=== PATIENT | female | born 1960 | race Caucasian/White ===

== ENCOUNTER 2018-07-03 20:21 | Outpatient (REF) | payer MEDICAID, SELFPAY ==
[2018-07-03 21:22] LABS: ALT 21 U/L (12-78); AST 14 U/L (15-37); Alkaline Phosphatase 137 U/L (46-116); Anion Gap 9.1 mmol/L (3-11); BUN 13 mg/dL (7-18); Bilirubin, Total 0.4 mg/dL (0.2-1.0); CO2 26.9 mmol/L (21.0-32.0); Calcium 9.4 mg/dL (8.5-10.1); Chloride 103 mmol/L (98-107); Estimated GFR 56.75 (mL/min/1.73m2); Glucose 164 mg/dL (70-100); Potassium 3.8 mmol/L (3.5-5.1); Sodium 139 mmol/L (136-145); TSH 5.16 uIU/mL (0.358-3.74); Total Protein 7.2 g/dL (6.4-8.2)
== END 2018-07-03 20:41 ==
LOC: NCHCN 20:21
PROVIDERS: PCP Physician Assistant Medical; Visit Provider Physician Assistant Medical
DX: I10 Essential (primary) hypertension (principal); E04.9 Nontoxic goiter, unspecified
CPT/HCPCS: 80053; 84443

== ENCOUNTER 2018-08-19 14:00 | Outpatient (REF) | payer MEDICAID, SELFPAY ==
[2018-08-19 19:36] LABS: Hemoglobin A1C 5.8 % (4.5-6.2)
[2018-08-19 19:37] LABS: Calculated LDL 188; Cholesterol 269 mg/dL (50-200); HDL Cholesterol 42 mg/dL (40-60); Triglyceride 199 mg/dL (30-150)
== END 2018-08-19 14:20 ==
LOC: NCHCN 14:00
PROVIDERS: PCP Physician Assistant Medical; Visit Provider Nurse Practitioner Family
DX: E78.5 Hyperlipidemia, unspecified (principal); R73.03 Prediabetes
CPT/HCPCS: 80061; 83721; 83036

== ENCOUNTER 2019-02-18 15:47 | Outpatient (REF) | payer MEDICAID, SELFPAY ==
[2019-02-18 19:57] LABS: TSH (W/Ref FT4) 4.38 uIU/mL (0.36-3.74)
[2019-02-18 20:13] LABS: FREE T4 0.81 ng/dL (0.76-1.46)
== END 2019-02-18 16:07 ==
LOC: NCHCN 15:47
PROVIDERS: PCP Physician Assistant Medical; Visit Provider Nurse Practitioner Family
DX: E05.80 Other thyrotoxicosis without thyrotoxic crisis or storm (principal)
CPT/HCPCS: 84439; 84443

== ENCOUNTER 2019-08-21 13:48 | Outpatient (REF) | payer MEDICAID, SELFPAY ==
[2019-08-21 20:36] LABS: ALT 22 U/L (14-59); AST 16 U/L (15-37); Anion Gap 7.3 mmol/L (3-11); BUN 14 mg/dL (7-18); CO2 30.7 mmol/L (21.0-32.0); CREATININE 1.15 mg/dL (0.55-1.02); Calcium 9.9 mg/dL (8.5-10.1); Calculated LDL 176 mg/dL (<100); Chloride 103 mmol/L (98-107); Cholesterol 274 mg/dL (<200); Estimated GFR 48.13 (mL/min/1.73m2); Glucose 87 mg/dL (74-106); HDL Cholesterol 47 mg/dL (40-60); Potassium 4.1 mmol/L (3.5-5.1); Sodium 141 mmol/L (136-145); TSH 2.15 uIU/mL (0.36-3.74); Triglyceride 258 mg/dL (<150)
== END 2019-08-21 14:08 ==
LOC: NCHCN 13:48
PROVIDERS: PCP Physician Assistant Medical; Visit Provider Nurse Practitioner Family
DX: I10 Essential (primary) hypertension (principal); E78.5 Hyperlipidemia, unspecified; E05.80 Other thyrotoxicosis without thyrotoxic crisis or storm
CPT/HCPCS: 80048; 80061; 84443; 84450; 84460

== ENCOUNTER 2020-02-17 19:59 | Outpatient (REF) | payer MEDICAID, SELFPAY ==
[2020-02-17 19:56] LABS: ALT 27 U/L (14-59); AST 24 U/L (15-37); Albumin 4.4 g/dL (3.4-5.0); Alkaline Phosphatase 131 U/L (46-116); Anion Gap 9.4 mmol/L (3-11); BUN 10 mg/dL (7-18); Bilirubin, Total 0.5 mg/dL (0.2-1.0); CO2 28.6 mmol/L (21.0-32.0); CREATININE 0.95 mg/dL (0.55-1.02); Calcium 9.8 mg/dL (8.5-10.1); Calculated LDL 89 mg/dL (<100); Chloride 101 mmol/L (98-107); Cholesterol 187 mg/dL (<200); Glucose 95 mg/dL (74-106); HDL Cholesterol 69 mg/dL (40-60); Potassium 4.5 mmol/L (3.5-5.1); Sodium 139 mmol/L (136-145); TSH 6.91 uIU/mL (0.36-3.74); Total Protein 7.9 g/dL (6.4-8.2); Triglyceride 147 mg/dL (<150)
== END 2020-02-17 20:19 ==
LOC: NCHCN 19:59
PROVIDERS: PCP Physician Assistant Medical; Visit Provider Nurse Practitioner Family
DX: E78.5 Hyperlipidemia, unspecified (principal); I10 Essential (primary) hypertension; E05.80 Other thyrotoxicosis without thyrotoxic crisis or storm
CPT/HCPCS: 80053; 80061; 84443

== ENCOUNTER 2020-08-24 11:45 | Outpatient (REF) | payer MEDICAID, SELFPAY ==
[2020-08-24 18:52] LABS: Hemoglobin A1C 5.8 % (<5.7)
[2020-08-24 19:04] LABS: Calculated LDL 111 mg/dL (<100); Cholesterol 194 mg/dL (<200); HDL Cholesterol 51 mg/dL (40-60); TSH 9.78 uIU/mL (0.36-3.74); Triglyceride 163 mg/dL (<150)
== END 2020-08-24 11:46 | disposition home or self-care (01) ==
LOC: NCHCN 11:45
PROVIDERS: PCP Physician Assistant Medical; Visit Provider Nurse Practitioner Family
DX: E78.5 Hyperlipidemia, unspecified (principal); R73.03 Prediabetes; E05.80 Other thyrotoxicosis without thyrotoxic crisis or storm
CPT/HCPCS: 80061; 83036; 84443

== ENCOUNTER 2020-09-01 16:12 | Outpatient (REF) | payer MEDICAID, SELFPAY ==
[2020-09-01 20:44] LABS: FREE T4 0.81 ng/dL (0.76-1.46)
[2020-09-02 16:42] LABS: T3,Free 2.6 pg/mL (2.8-5.3)
== END 2020-09-01 16:13 | disposition home or self-care (01) ==
LOC: NCHCN 16:12
PROVIDERS: PCP Physician Assistant Medical; Visit Provider Nurse Practitioner Family
DX: E05.80 Other thyrotoxicosis without thyrotoxic crisis or storm (principal)
CPT/HCPCS: 84439; 84481

== ENCOUNTER 2021-03-08 15:16 | Outpatient (REF) | payer MEDICAID, SELFPAY ==
[2021-03-08 20:50] LABS: Anion Gap 8.8 mmol/L (3-11); BUN 10 mg/dL (7-18); CO2 29.2 mmol/L (21.0-32.0); CREATININE 0.9 mg/dL (0.55-1.02); Calcium 9.6 mg/dL (8.5-10.1); Chloride 102 mmol/L (98-107); Glucose 99 mg/dL (74-106); Potassium 3.9 mmol/L (3.5-5.1); Sodium 140 mmol/L (136-145); TSH (W/Ref FT4) 5.65 uIU/mL (0.36-3.74)
[2021-03-08 21:13] LABS: FREE T4 0.76 ng/dL (0.76-1.46)
== END 2021-03-08 15:17 | disposition home or self-care (01) ==
LOC: NCHCN 15:16
PROVIDERS: PCP Physician Assistant Medical; Visit Provider Physician Assistant
DX: R73.03 Prediabetes (principal); I10 Essential (primary) hypertension; E05.80 Other thyrotoxicosis without thyrotoxic crisis or storm
CPT/HCPCS: 80048; 84439; 84443

== ENCOUNTER 2022-03-29 21:13 | Outpatient (REF) | payer MEDICAID, SELFPAY ==
[2022-03-29 22:10] LABS: ALT 27 U/L (14-59); AST 25 U/L (15-37); Albumin 4.1 g/dL (3.4-5.0); Alkaline Phosphatase 143 U/L (46-116); BUN 10 mg/dL (7-18); Bilirubin, Total 0.5 mg/dL (0.2-1.0); CREATININE 0.9 mg/dL (0.55-1.02); Calcium 10.1 mg/dL (8.5-10.1); Chloride 105 mmol/L (98-107); Estimated GFR 71.83 (mL/min/1.73m2); Glucose 96 mg/dL (74-106); Sodium 139 mmol/L (136-145)
[2022-03-29 22:15] LABS: TSH (W/Ref FT4) < 0.01 uIU/mL (0.36-3.74)
[2022-03-29 22:33] LABS: FREE T4 1.45 ng/dL (0.76-1.46)
== END 2022-03-29 21:14 | disposition home or self-care (01) ==
LOC: NCHCN 21:13
PROVIDERS: PCP Physician Assistant Medical; Visit Provider Physician Assistant
DX: I10 Essential (primary) hypertension (principal); E05.80 Other thyrotoxicosis without thyrotoxic crisis or storm
CPT/HCPCS: 80053; 84439; 84443

== ENCOUNTER 2022-05-11 16:33 | Outpatient (REF) | payer MEDICAID, SELFPAY ==
[2022-05-11 19:18] LABS: TSH 0.71 uIU/mL (0.36-3.74)
== END 2022-05-11 16:34 | disposition home or self-care (01) ==
LOC: NCHCN 16:33
PROVIDERS: PCP Physician Assistant Medical; Visit Provider Physician Assistant
DX: E05.80 Other thyrotoxicosis without thyrotoxic crisis or storm (principal)
CPT/HCPCS: 84443

== ENCOUNTER 2023-03-27 14:09 | Outpatient (REF) | payer MEDICAID, SELFPAY ==
[2023-03-27 19:54] LABS: ALT 22 U/L (14-59); AST 23 U/L (15-37); Albumin 4.3 g/dL (3.4-5.0); Alkaline Phosphatase 118 U/L (46-116); Anion Gap 6.6 mmol/L (3-11); BUN 12 mg/dL (7-18); Bilirubin, Total 0.6 mg/dL (0.2-1.0); CO2 27.4 mmol/L (21.0-32.0); CREATININE 1.1 mg/dL (0.55-1.02); Calcium 10.1 mg/dL (8.5-10.1); Chloride 102 mmol/L (98-107); Estimated GFR 56.11 (mL/min/1.73m2); Glucose 98 mg/dL (74-106); LDL CHOLESTEROL 138 mg/dL (<100); Potassium 4.1 mmol/L (3.5-5.1); Sodium 136 mmol/L (136-145); TSH (W/Ref FT4) 33.27 uIU/mL (0.36-3.74); Total Protein 8.1 g/dL (6.4-8.2)
[2023-03-27 20:15] LABS: FREE T4 0.35 ng/dL (0.76-1.46)
[2023-03-27 20:18] LABS: Hemoglobin A1C 5.8 % (<5.7)
== END 2023-03-27 14:10 | disposition home or self-care (01) ==
LOC: NCHCN 14:09
PROVIDERS: PCP Physician Assistant Medical; Visit Provider Physician Assistant
DX: E05.90 Thyrotoxicosis, unspecified without thyrotoxic crisis or storm (principal); E78.5 Hyperlipidemia, unspecified; R73.03 Prediabetes
CPT/HCPCS: 80053; 83721; 83036; 84439; 84443

== ENCOUNTER 2023-05-16 22:13 | Outpatient (REF) | payer MEDICAID, SELFPAY ==
[2023-05-16 20:28] LABS: TSH (W/Ref FT4) 8.37 uIU/mL (0.36-3.74)
[2023-05-16 21:02] LABS: FREE T4 0.77 ng/dL (0.76-1.46)
== END 2023-05-16 22:14 | disposition home or self-care (01) ==
LOC: NCHCN 22:13
PROVIDERS: PCP Physician Assistant Medical; Visit Provider Physician Assistant
DX: E04.9 Nontoxic goiter, unspecified (principal)
CPT/HCPCS: 84439; 84443

== ENCOUNTER 2023-07-02 14:52 | Outpatient (REF) | payer MEDICAID, SELFPAY ==
[2023-07-02 19:08] LABS: TSH (W/Ref FT4) 0.02 uIU/mL (0.36-3.74)
[2023-07-02 19:34] LABS: FREE T4 1.85 ng/dL (0.76-1.46)
== END 2023-07-02 14:53 | disposition home or self-care (01) ==
LOC: NCHCN 14:52
PROVIDERS: PCP Physician Assistant Medical; Visit Provider Physician Assistant
DX: E04.9 Nontoxic goiter, unspecified (principal)
CPT/HCPCS: 84439; 84443

== ENCOUNTER 2023-09-27 14:21 | Outpatient (REF) | payer MEDICARE, MEDICAID, SELFPAY ==
[2023-09-27 19:48] LABS: FREE T4 0.78 ng/dL (0.76-1.46); TSH 3.67 uIU/Ml (0.36-3.74)
[2023-09-28 21:26] LABS: Hepatitis C Ab w Rflx HCV PCR Negative (Negative)
[2023-09-28 21:31] LABS: HIV-1/2 Ag & Ab Screen Negative (Negative)
== END 2023-09-27 14:22 | disposition home or self-care (01) ==
LOC: NCHCN 14:21
PROVIDERS: PCP Physician Assistant Medical; Visit Provider Physician Assistant
DX: E05.90 Thyrotoxicosis, unspecified without thyrotoxic crisis or storm (principal); Z11.4 Encounter for screening for human immunodeficiency virus [HIV]; Z11.59 Encounter for screening for other viral diseases
CPT/HCPCS: 86803; 87389; 84439; 84443

== ENCOUNTER 2024-04-02 11:17 | Outpatient (REF) | payer MEDICARE, MEDICAID, SELFPAY ==
[2024-04-02 20:37] LABS: ALT 22 U/L (14-59); AST 25 U/L (15-37); Albumin 4.2 g/dL (3.4-5.0); Alkaline Phosphatase 148 U/L (46-116); Anion Gap 6.6 mmol/L (3-11); BUN 12 mg/dL (7-18); Bilirubin, Total 0.35 mg/dL (0.2-1.0); CO2 30.4 mmol/L (21.0-32.0); Calcium 10.4 mg/dL (8.5-10.1); Calculated LDL 103 mg/dL (<100); Chloride 106 mmol/L (98-107); Cholesterol 208 mg/dL (<200); Estimated GFR 62.52 (mL/min/1.73m2); Glucose 106 mg/dL (74-106); HDL Cholesterol 66 mg/dL (40-60); Potassium 4.4 mmol/L (3.5-5.1); Sodium 143 mmol/L (136-145); TSH (W/Ref FT4) 5.33 uIU/mL (0.36-3.74); Total Protein 8.2 g/dL (6.4-8.2); Triglyceride 196 mg/dL (<150)
[2024-04-02 20:54] LABS: FREE T4 0.74 ng/dL (0.76-1.46)
== END 2024-04-02 11:18 | disposition home or self-care (01) ==
LOC: NCHCN 11:17
PROVIDERS: PCP Physician Assistant Medical; Visit Provider Physician Assistant
DX: E78.5 Hyperlipidemia, unspecified (principal); E05.90 Thyrotoxicosis, unspecified without thyrotoxic crisis or storm
CPT/HCPCS: 80053; 80061; 84439; 84443

== ENCOUNTER 2024-05-15 16:56 | Outpatient (REF) | payer MEDICARE, MEDICAID, SELFPAY ==
[2024-05-15 20:19] LABS: TSH < 0.01 uIU/mL (0.36-3.74)
[2024-05-16 17:51] LABS: T4, Free 2.6 ng/dL (0.8-2.2)
== END 2024-05-15 16:57 | disposition home or self-care (01) ==
LOC: NCHCN 16:56
PROVIDERS: PCP Physician Assistant Medical; Visit Provider Physician Assistant
DX: E05.90 Thyrotoxicosis, unspecified without thyrotoxic crisis or storm (principal)
CPT/HCPCS: 84439; 84443

== ENCOUNTER 2024-07-14 15:00 | Outpatient (REF) | payer MEDICARE, MEDICAID, SELFPAY ==
[2024-07-14 19:54] LABS: TSH < 0.01 uIU/mL (0.36-3.74)
== END 2024-07-14 15:01 | disposition home or self-care (01) ==
LOC: NCHCN 15:00
PROVIDERS: PCP Physician Assistant Medical; Visit Provider Physician Assistant
DX: E05.90 Thyrotoxicosis, unspecified without thyrotoxic crisis or storm (principal)
CPT/HCPCS: 84439; 84443

== ENCOUNTER 2024-10-01 19:02 | Outpatient (REF) | payer MEDICARE, MEDICAID, SELFPAY ==
[2024-10-01 21:43] LABS: Hemoglobin A1C 6.4 % (<5.7)
[2024-10-01 21:56] LABS: TSH 3.80 uIU/mL (0.36-3.74)
== END 2024-10-01 19:03 | disposition home or self-care (01) ==
LOC: NCHCN 19:02
PROVIDERS: PCP Physician Assistant Medical; Visit Provider Physician Assistant
DX: R73.03 Prediabetes (principal); E05.90 Thyrotoxicosis, unspecified without thyrotoxic crisis or storm
CPT/HCPCS: 83036; 84439; 84443

== ENCOUNTER 2025-03-04 15:02 | Outpatient (REF) | payer MEDICARE, MEDICAID, SELFPAY ==
[2025-03-04 18:28] LABS: TSH (W/Ref FT4) 5.73 uIU/mL (0.55-4.78)
[2025-03-04 18:34] LABS: ALT 20 U/L (10-49); AST 25 U/L (<34); Albumin 4.8 g/dL (3.2-5.0); Alkaline Phosphatase 127 U/L (46-116); Anion Gap 9.1 mmol/L (3-11); BUN 10 mg/dL (9-23); Bilirubin, Total 0.5 mg/dL (0.2-1.2); CO2 26.9 mmol/L (20.0-31.0); Calcium 10.0 mg/dL (8.3-10.6); Chloride 105 mmol/L (98-107); Glucose 93 mg/dL (74-106); Potassium 3.8 mmol/L (3.5-5.1); Sodium 141 mmol/L (136-145); Total Protein 7.7 g/dL (5.7-8.2)
== END 2025-03-04 15:03 | disposition home or self-care (01) ==
LOC: NCHCN 15:02
PROVIDERS: PCP Physician Assistant Medical; Visit Provider Physician Assistant
DX: E05.90 Thyrotoxicosis, unspecified without thyrotoxic crisis or storm (principal); I10 Essential (primary) hypertension
CPT/HCPCS: 80053; 84439; 84443